=== PATIENT | female | born 1985 | race African-American/Black ===

== ENCOUNTER 2016-10-12 15:32 | Emergency (ER) | payer MEDICAID ==
[~2016-10-12] VITALS: Ht 167.6 cm; Wt 65.8 kg
[2016-10-12 16:24] VITALS: BP 105/72
[2016-10-12] MEDS ORDERED: NAPROXEN500 M2 ORAL (16:29)
[2016-10-12] MEDS ORDERED: ROBAXIN-750750 MG PO (16:29)
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
[2016-10-12 16:56] VITALS: BP 105/72
== END 2016-10-12 16:59 | disposition home or self-care (01) ==
LOC: EMR 16:23
DX: S16.1XXA Strain of muscle, fascia and tendon at neck level, initial encounter (principal); V43.52XA Car driver injured in collision with other type car in traffic accident, initial encounter; Y93.9 Activity, unspecified; Y92.410 Unspecified street and highway as the place of occurrence of the external cause
CPT/HCPCS: 99284